=== PATIENT | male | born 1980 | race Caucasian/White ===

== ENCOUNTER 2016-06-11 19:25 | Emergency (ER) | payer MEDICAID ==
[~2016-06-11] VITALS: Ht 177.8 cm; Wt 73.0 kg
[2016-06-11 19:25] VITALS: BP 166/79; PULSE 90; RESP 18; TEMP 98.4; O2SAT 98
[2016-06-11] MEDS ORDERED: TURM1TAB PO (20:19)
[2016-06-11] MEDS ORDERED: ACETAMINOPHEN/HYDROcodone 325 MG/5 MG TAB PO ONE (21:00)
[2016-06-11] MEDS ORDERED: DICL75TA PO (21:00)
[2016-06-11] MEDS ORDERED: NAPROXEN 500 MG TAB PO ONE (21:00)
[2016-06-11] MEDS ORDERED: ROBA500T PO (21:00)
--- NOTE | 2016-06-11 21:07 | PD ---
HPI Chief Complaint: Back/ Neck Pain or Injury Time Seen by Provider: 21:04 Travel History International Travel<30 days: No Contact w/Intl Traveler<30days: No Traveled to known affect area: No History of Present Illness HPI 35-year-old white male presents to emergency Department with complaints of lower back pain with radiation into his left leg since January. 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 He had been under the care of a chiropractor who x-rayed his back and said his left side which shifted. He states that he went to therapy for a month and a half without relief. He states that he was tired of the pain he came in tonight. There was no one particular reason. He states the pain is persistent. Worse with bending and movement. He denies any acute bowel or bladder changes. Pain is moderate. Worse with bending. No alleviating factors. PFSH Past Medical History Medical History: Denies Significant Hx Tetanus Vaccination: Unknown Past Surgical History Surgical History: No Previous Surgery Social History Alcohol Use: No Tobacco Use: Yes Allergies-Medications (Allergen,Severity, Reaction): Coded Allergies: Penicillin (Verified Allergy, Unknown, 06/11/16) Reported Meds & Prescriptions Reported Meds & Active Scripts Active Robaxin (Methocarbamol) 500 Mg Tab 1,000 Mg PO TID [address] (Diclofenac Sodium) 75 Mg Tabdr 75 Mg PO BID Reported Turmeric (Turmeric (Curcuma Longa)) 500 Mg Tab 5,000 Mg PO DAILY Review of Systems Except as stated in HPI: all other systems reviewed are Neg Physical Exam Narrative GENERAL: Well-developed, well-nourished in no apparent distress. Nontoxic appearing. HEAD: Normocephalic, atraumatic. EYES: Pupils equal round and reactive. Extraocular motions intact. No scleral icterus. No injection or drainage. ENT: Nose clear. Throat without erythema, tonsillar hypertrophy or exudate. Uvula midline. Airway patent. NECK: Trachea midline. Supple, nontender, moves head freely. No central bony tenderness or spasm. CARDIOVASCULAR: Regular rate and rhythm without murmurs, gallops, or rubs. RESPIRATORY: Clear to auscultation. Breath sounds equal bilaterally. No wheezes , rales, or rhonchi. GASTROINTESTINAL: Abdomen soft, non-tender, nondistended. No hepato-splenomegaly , or palpable masses. No guarding. EXTREMITIES: No clubbing, cyanosis, or edema. No joint tenderness. BACK: Complains of lower lumbar tenderness diffusely but more so on the left side than the right. Without deformity. No flank tenderness. Decreased for flexion to 70. Positive straight leg raise on the left. Deep tendon reflexes are 3+ bilaterally. He has intact sensation with good distal pulses. No saddle anesthesia. NEUROLOGICAL: Awake, alert and oriented x 3 .Cranial nerves grossly intact. Motor and sensory grossly within normal limits. Normal speech. Data Data Last Documented VS Vital Signs Date Time Temp Pulse Resp B/P Pulse Ox O2 Delivery O2 Flow Rate FiO2 06/11/16 19:25 98.4 90 18 166/79 98 Orders Acetamin-Hydrocod 325-5 Mg ([place]ison 5-325 (06/11/16 21:00) Naproxen (Naprosyn) (06/11/16 21:00) MDM Medical Decision Making Medical Screen Exam Complete: Yes Emergency Medical Condition: Yes Medical Record Reviewed: Yes Differential Diagnosis MDM: High Differential diagnoses: AAA,Fracture, sprain, strain, HNP, nerve or vascular injury, epidural abscess, pilonidal cyst, pyelonephritis, UTI, nephrolithiasis, ureterolithiasis Narrative Course Patient's given Lortab 5 and Naprosyn 500 mg by mouth. This is back pain with sciatica Diagnosis Primary Impression: Low back pain with left-sided sciatica Patient Instructions: Narcotic given in the ED, General Instructions Additional Instructions: Rest. Ice for the next 3 days followed by heat . Robaxin and Voltaren. Follow-up with a primary care doctor in one week. Consider MRI and follow up with a pain management doctor. Return to the ER for emergencies. Med/Other Pt SpecificInfo: Prescription(s) given Scripts Methocarbamol (Robaxin)500 Mg Tab1,000 Mg PO TID 10 Days Ref 0 Prov:Victor Hugo Parsons MD 06/11/[address] 75 Mg Tabdr75 Mg PO BID #20 TAB Prov:Victor Hugo Parsons MD 06/11/16 Disposition: 01 DISCHARGE HOME Condition: Stable Angelito Najera Jun 11, 2016 21:07
== END 2016-06-11 21:32 | disposition home or self-care (01) ==
LOC: NEPB 19:25
DX: M54.42 Lumbago with sciatica, left side (principal)
CPT/HCPCS: 99283